=== PATIENT | male | born 1965 | race Caucasian/White ===

== ENCOUNTER 2019-02-13 13:12 | Emergency (ER) | payer OTHER ==
[~2019-02-13] VITALS: Ht 180.3 cm; Wt 93.0 kg
[2019-02-13 13:55] LABS: BACTERIA,URINE TRACE /HPF; BILIRUBIN,URINE NEGATIVE (NEGATIVE); CLARITY,URINE CLEAR; COLOR,URINE DARK YELLOW; GLUCOSE, URINE (UA) NEGATIVE (NEGATIVE); KETONES,URINE TRACE (NEGATIVE); LEUKOCYTE ESTERASE ,URINE NEGATIVE (NEGATIVE); NITRITE,URINE NEGATIVE (NEGATIVE); PROTEIN,URINE 1+ (NEGATIVE); RBC,URINE 0-2 /HPF
[2019-02-13 13:56] LABS: SQUAMOUS EPITHELIAL CELL,UR 0-2 /HPF
[2019-02-13 14:00] LABS: AMPHETAMINE SCREEN, URINE NEGATIVE (NEGATIVE); BARBITURATE SCREEN URINE NEGATIVE (NEGATIVE); BENZODIAZEPINES SCREEN URINE NEGATIVE (NEGATIVE); CANNABINOID SCREEN, URINE NEGATIVE (NEGATIVE); COCAINE SCREEN URINE NEGATIVE (NEGATIVE); METHADONE STAT NEGATIVE (NEGATIVE); METHAMPHETAMINE SCREEN URINE S NEGATIVE (NEGATIVE); OPIATE SCREEN URINE NEGATIVE (NEGATIVE); OXYCODONE STAT NEGATIVE (NEGATIVE); PROPOXYPHENE STAT NEGATIVE (NEGATIVE); TRICYCLIC ANTIDEPRESSANTS SCRE NEGATIVE (NEGATIVE)
--- NOTE | 2019-02-13 14:09 | ED Back Pain ---
General Chief Complaint: Back Problems Stated Complaint: BACK/ABD PAIN Nursing Triage Note: Patient reports lower midline back pain that radiates to his left groin, duration of 1 week. Patient states pain is intermittent, denies any difficulty urinating, blood in his urine, pain with urination. Nursing Sepsis Screen: No Definite Risk Source of Information: Patient Exam Limitations: No Limitations History of Present Illness Date Seen by Provider: Feb 13, 2019 Time Seen by Provider: 13:31 Initial Comments Patient presents to ER by private conveyance with chief complaint of one week presently worsening pain in his low back just above the sacrum and to the left side radiating around to the front now for the last couple days into his left groin. No dysuria, hematuria, fevers chills. Worse with movement bending over jumping or riding in a car. No history of kidney stones. No history of significant back pain. No inciting event. He played 18 rounds of golf yesterday and said he felt good then the pain came back this morning. No significant medical history and does not take any medications. He's been using topical creams, lidocaine, etc. He does not want anything for pain right now. Rates the pain as mild right now at rest but it will take him to his knees and make him stop about a 10 out of 10 if he does anything strenuous. No incontinence, saddle anesthesia, numbness, weakness or inability to walk. Allergies and Home Medications Allergies Coded Allergies: No Known Drug Allergies (Unverified , 02/13/19) Patient Home Medication List Home Medication List Reviewed: Yes Review of Systems Constitutional: No chills, No fever Respiratory: No cough, No short of breath Cardiovascular: No chest pain, No edema, No Hx of Intervention, No palpitations Gastrointestinal: No abdominal pain, No constipation, No diarrhea, No nausea, No vomiting Genitourinary: No discharge, No dysuria, No frequency, No hematuria, No hesitancy, No incontinence Musculoskeletal: No joint pain, No joint swelling Past Lgjdxiq-Vjslce-Znwskl Hx Patient Social History Recent Foreign Travel: No Contact w/Someone Who Travel: No Recent Infectious Disease Expo: No Physical Exam Vital Signs Vital Signs - First Documented 02/13/19 13:22 Temp 98.0 Pulse 66 Resp 16 B/P (MAP) 165/90 (115) Pulse Ox 98 O2 Delivery Room Air Capillary Refill : Less Than 3 Seconds Height, Weight, BMI Height: 5'11.00" Weight: 205lbs. oz. 92.002451ab; BMI Method:Stated General Appearance: WD/WN, Mild Distress HEENT: PERRL/EOMI, Pharynx Normal, Moist Mucous Membranes Neck: Full Range of Motion, Normal Inspection, Non Tender, Supple Cardiovascular: Regular Rate, Rhythm, No Edema, Normal Peripheral Pulses Respiratory: No Accessory Muscle Use, No Respiratory Distress Back: Normal Inspection, No Vertebral Tenderness, Muscle Spasm (left para vertebral spasm and tenderness to lumbar spine L4, L5 and S1. No sciatica) Extremity: Normal Capillary Refill, Normal Inspection, Normal Range of Motion, No Pedal Edema Neurologic/Psychiatric: Alert, Oriented x3, Normal Mood/Affect Progress/Results/Core Measures Results/Orders Lab Results Laboratory Tests Test 02/13/19 13:30 Range/Units Urine Color DARK YELLOW Urine Clarity CLEAR Urine pH 6.0 5-9 Urine Specific [place] 1.025 H 1.016-1.022 Urine Protein 1+ H NEGATIVE Urine Glucose (UA) NEGATIVE NEGATIVE Urine Ketones TRACE H NEGATIVE Urine Nitrite NEGATIVE NEGATIVE Urine Bilirubin NEGATIVE NEGATIVE Urine Urobilinogen 1.0 NORMAL MG/DL Urine Leukocyte Esterase NEGATIVE NEGATIVE Urine RBC (Auto) NEGATIVE NEGATIVE Urine RBC 0-2 /HPF Urine WBC 2-5 /HPF Urine Squamous Epithelial Cells 0-2 /HPF Urine Crystals NONE /LPF Urine Bacteria TRACE /HPF Urine Casts NONE /LPF Urine Mucus SMALL H /LPF Urine Culture Indicated NO Urine Opiates Screen NEGATIVE NEGATIVE Urine Oxycodone Screen NEGATIVE NEGATIVE Urine Methadone Screen NEGATIVE NEGATIVE Urine Propoxyphene Screen NEGATIVE NEGATIVE Urine Barbiturates Screen NEGATIVE NEGATIVE Ur Tricyclic Antidepressants Screen NEGATIVE NEGATIVE Urine Phencyclidine Screen NEGATIVE NEGATIVE Urine Amphetamines Screen NEGATIVE NEGATIVE Urine Methamphetamines Screen NEGATIVE NEGATIVE Urine Benzodiazepines Screen NEGATIVE NEGATIVE Urine Cocaine Screen NEGATIVE NEGATIVE Urine Cannabinoids Screen NEGATIVE NEGATIVE My Orders Orders - SWATHI SARAVIA Ua Culture If Indicated (02/13/19 13:32) Drug Screen Stat (Urine) (02/13/19 13:32) Drug Screen Stat (Urine) (02/13/19 13:41) Ua Culture If Indicated (02/13/19 13:41) Ct Abdomen/Pelvis Wo (02/13/19 14:03) Vital Signs/I&O 02/13/19 13:22 Temp 98.0 Pulse 66 Resp 16 B/P (MAP) 165/90 (115) Pulse Ox 98 O2 Delivery Room Air Blood Pressure Mean: 115 Progress Progress Note : Time: 14:09 Progress Note Paraspinous muscle spasm and back pain lumbago versus possible kidney stone. We' ll obtain a urine and a CT scan given his age just to rule out also represent a large mass or obvious thing seen on the lumbar spine. He has declined anything for pain. Diagnostic Imaging Diagonstic Imaging: CT (noncontrast kidney stone study) Plain Films/CT/US/NM/MRI: abdomen, pelvis Comments No renal or ureteral stones seen. No ureteral dilatation or other evidence of kidney stone disease. Back shows some spurring and chronic changes consistent with osteoarthritis and DJD but no wedging or masses or suspicious lesions seen. NAME: [facility] REC#: [id number] PT STATUS: REG ER : 1965 PHYSICIAN: SWATHI SARAVIA MD ADMIT DATE: 02/13/19/ER FS Draft Date of Exam:02/13/19 CT ABDOMEN/PELVIS WO PROCEDURE: CT abdomen and pelvis without contrast. TECHNIQUE: Multiple contiguous axial images were obtained through the abdomen and pelvis without the use of intravenous contrast. Auto Exposure Controls were utilized during the CT exam to meet ALARA standards for radiation dose reduction. INDICATION: Back pain and abdominal pain on the left side. COMPARISON: No prior studies are available for comparison. FINDINGS: Imaging through the lung bases does show some linear atelectasis or scarring in the left lower lobe. No discrete liver mass is identified. The gallbladder is unremarkable. No biliary ductal dilatation is seen. The pancreas and spleen are unremarkable. No adrenal mass is identified. No definite renal calculi or evidence of hydronephrosis is identified. No ureteral calculi are detected. The aorta demonstrates some calcification but is nonaneurysmal. The small and large bowel loops are normal in caliber. No obstruction is identified. No inflammatory process is seen. There is no free fluid or fluid collection. Bladder is decompressed. There is some prostate enlargement noted. No definite abdominal or pelvic lymphadenopathy is detected. IMPRESSION: 1. Essentially unremarkable noncontrast CT of the abdomen and pelvis. No acute abnormality is identified. No urinary tract calculi or obstruction is identified. 2. Prostatomegaly. Dictated on workstation # [id number] Dict: 02/13/19 1433 Trans: 02/13/19 1442 [id number] Interpreted by: JOHNNY FAJARDO MD Electronically signed by: Reviewed: Reviewed by Me Departure Impression Primary Impression: Lumbago without sciatica Qualified Codes: M54.5 - Low back pain Disposition: 01 HOME, SELF-CARE Condition: Stable Departure-Patient Inst. Decision time for Depature: 15:09 Referrals: NO,LOCAL PHYSICIAN (PCP/Family) Primary Care Physician Patient Instructions: Low Back Pain (DC) Add. Discharge Instructions: Continue to use the topical creams of your choice along with heat and rest. Get a back brace and wear it on every day that helps. Use Tylenol 1000 mg every 8 hours as needed for breakthrough pain. Start using the prescription Naprosyn one tablet twice a day for the next 1-2 weeks. Use the cyclobenzaprine 1 tablet every 8 hours as necessary for muscle spasm in your back. Expect good results in 2-4 weeks. If you're not seeing any improvement by 2 weeks then you should follow-up with primary care and discuss physical therapy, chiropractic, steroids, further workup. All discharge instructions reviewed with patient and/or family. Voiced understanding. Scripts Cyclobenzaprine HCl (Cyclobenzaprine HCl) 10 Mg Tablet 10 MG PO Q8H PRN for SPASMS, #20 TAB 0 Refills Prov: SWATHI SARAVIA 02/13/19 Work/School Note: Work Release Form Date Seen in the Emergency Department: Feb 13, 2019 Return to Work: Feb 18, 2019 Restrictions: No Restrictions SWATHI SARAVIA Feb 13, 2019 14:09
--- NOTE | 2019-02-13 14:43 | Diagnostic Imaging Report ---
PROCEDURE: CT abdomen and pelvis without contrast. TECHNIQUE: Multiple contiguous axial images were obtained through the abdomen and pelvis without the use of intravenous contrast. Auto Exposure Controls were utilized during the CT exam to meet ALARA standards for radiation dose reduction. INDICATION: Back pain and abdominal pain on the left side. COMPARISON: No prior studies are available for comparison. FINDINGS: Imaging through the lung bases does show some linear atelectasis or scarring in the left lower lobe. No discrete liver mass is identified. The gallbladder is unremarkable. No biliary ductal dilatation is seen. The pancreas and spleen are unremarkable. No adrenal mass is identified. No definite renal calculi or evidence of hydronephrosis is identified. No ureteral calculi are detected. The aorta demonstrates some calcification but is nonaneurysmal. The small and large bowel loops are normal in caliber. No obstruction is identified. No inflammatory process is seen. There is no free fluid or fluid collection. Bladder is decompressed. There is some prostate enlargement noted. No definite abdominal or pelvic lymphadenopathy is detected. IMPRESSION: 1. Essentially unremarkable noncontrast CT of the abdomen and pelvis. No acute abnormality is identified. No urinary tract calculi or obstruction is identified. 2. Prostatomegaly. Dictated by: Dictated on workstation # [id number]
[2019-02-13] MEDS ORDERED: CYCL10TA9 PO (15:10)
[2019-02-13] MEDS ORDERED: ORPHENADRINE 60 MG/2 ML (NORFLEX) AMP IM ONE (15:15)
[2019-02-13] MEDS ORDERED: KETOROLAC 60 MG/2 ML VIAL IM ONE (15:15)
[2019-02-13] MEDS ORDERED: CYCLOBENZAPRINE 10 MG (FLEXERIL) TAB ONE (15:35)
[2019-02-13] MEDS ORDERED: CYCLOBENZAPRINE 10 MG (FLEXERIL) TAB PO STA (15:37)
[2019-02-13 15:40] VITALS: BP 165/90
== END 2019-02-13 15:40 | disposition home or self-care (01) ==
LOC: EDUNIT# 13:12 → ER FS 13:16
DX: M54.42 Lumbago with sciatica, left side (principal)
CPT/HCPCS: 74176; 80306; 81000; 96372